=== PATIENT | female | born 1990 | race African-American/Black ===

== ENCOUNTER 2017-06-13 17:50 | Emergency (ER) | payer SELFPAY ==
[~2017-06-13] VITALS: Ht 165.1 cm; Wt 85.0 kg
[~2017-06-13 17:50] MED LIST: ZOFR4TAB3 SL
[2017-06-13 17:52] VITALS: BP 105/75; PULSE 74; RESP 20; TEMP 98.3; O2SAT 97
== END 2017-06-13 22:46 | disposition left against medical advice (07) ==
LOC: NED 17:50
DX: R11.10 Vomiting, unspecified (principal); Z53.21 Procedure and treatment not carried out due to patient leaving prior to being seen by health care provider
CPT/HCPCS: 99281

== ENCOUNTER 2018-02-11 21:46 | Emergency (ER) | payer SELFPAY ==
[2018-02-11 21:52] VITALS: BP 107/56; PULSE 70; RESP 20; TEMP 99.1; O2SAT 98
[2018-02-11 22:19] LABS: BILIRUBIN, URINE NEG (NEG); BLOOD, URINE NEG (NEG); GLUCOSE,URINE NEG (NEG); KETONE, URINE NEG (NEG); NITRITE,URINE NEG (NEG); URINE COLOR YELLOW (YELLW/STRAW); URINE LEUKOCYTE ESTERASE SMALL (NEG)
[2018-02-11 22:41] LABS: MUCUS URINE MOD /lpf (OCC); SQUAMOUS EPITHELIAL CELL URINE > 8 /hpf (0-5)
[2018-02-11 22:42] LABS: BACTERIA, URINE OCC /hpf
[2018-02-11] MEDS ORDERED: DIFL150T PO (23:23)
--- NOTE | 2018-02-11 23:24 | PD ---
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 Patient states that his symptoms started several days ago. Patient denies any headache. Patient denies any chest pain or shortness of breath. Patient denies abdominal pain. Patient denies any back pain. Patient denies any dysuria frequency. Patient denies any fever chills. Patient states that she was treated for chlamydia, STD in the past. PFSH Past Medical History Diminished Hearing: No GERD: Yes Tetanus Vaccination: Unknown Influenza Vaccination: No ?: Not LMP: APPROX 3 WEEKS AGO : 0 Para: 0 Past Surgical History Other Surgery: Yes ("HEAD A BABY", LIPOSUCTION AND FAT TRANSFER 12/08/17) Social History Alcohol Use: Yes (Occ.) Tobacco Use: No Substance Use: No Allergies-Medications (Allergen,Severity, Reaction): Coded Allergies: miconazole (Unverified Allergy, Severe, SWELLING/ RASH, 06/25/17) Reported Meds & Prescriptions Reported Meds & Active Scripts Active Zofran ODT (Ondansetron HCl) 4 Mg Tab 4 Mg SL Q4-6H PRN FOR NAUSEA/VOMITING Review of Systems General / Constitutional: No: Fever Eyes: No: Visual changes HENT: No: Headaches Cardiovascular: No: Chest Pain or Discomfort Respiratory: No: Shortness of Breath Gastrointestinal: No: Abdominal Pain Genitourinary: Positive: Discharge, No: Dysuria Musculoskeletal: No: Pain Skin: No Rash Neurologic: No: Weakness Psychiatric: No: Depression Endocrine: No: Polydipsia Hematologic/Lymphatic: No: Easy Bruising Physical Exam Narrative GENERAL: Well-nourished, well-developed patient. SKIN: Focused skin assessment warm/dry. HEAD: Normocephalic. EYES: No scleral icterus. No injection or drainage. NECK: Supple, trachea midline. No JVD or lymphadenopathy. CARDIOVASCULAR: Regular rate and rhythm without murmurs, gallops, or rubs. RESPIRATORY: Breath sounds equal bilaterally. No accessory muscle use. GASTROINTESTINAL: Abdomen soft, non-tender, nondistended. MUSCULOSKELETAL: No cyanosis, or edema. BACK: Nontender without obvious deformity. No CVA tenderness. 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 No cervical motion tenderness. Uterus is nonenlarged and nontender on palpation. No adnexal mass or tenderness. Data Data Last Documented VS Vital Signs Date Time Temp Pulse Resp B/P (MAP) Pulse Ox O2 Delivery O2 Flow Rate FiO2 02/11/18 21:52 99.1 70 20 107/56 (73) 98 Orders Orders Urinalysis - C+S If Indicated (02/11/18 22:03) Ed Urine Pregnancytest Poc (02/11/18 22:03) Gc And Chlamydia Pcr (02/11/18 23:18) Wet Prep Profile (02/11/18 23:18) Azithromycin Powd Pack (Zithromax Powd P (02/11/18 23:30) Rocephin 250mg Vial Im X 1 (02/11/18 23:30) Labs Laboratory Tests Test 02/11/18 22:05 Urine Collection Type CLEAN CATCH Urine Color YELLOW Urine Turbidity SL CLOUDY Urine pH 7.0 Urine Specific [place] 1.025 Urine Protein TRACE mg/dL Urine Glucose (UA) NEG mg/dL Urine Ketones NEG mg/dL Urine Occult Blood NEG Urine Nitrite NEG Urine Bilirubin NEG Urine Urobilinogen 0.2 MG/DL Urine Leukocyte Esterase SMALL Urine WBC 3-5 /hpf Urine Squamous Epithelial Cells > 8 /hpf Urine Bacteria OCC /hpf Urine Mucus MOD /lpf Urine Yeast (Budding) OCC Microscopic Urinalysis Comment CULT NOT INDICATED MDM Medical Decision Making Medical Screen Exam Complete: Yes Emergency Medical Condition: Yes Differential Diagnosis Differential diagnosis including bacterial vaginosis, Elicia vaginitis, cervicitis, PID. Narrative Course 27-year-old female with vaginal discharge and itching. Diagnosis Primary Impression: Cervicitis Additional Impression: Elicia vaginitis Patient Instructions: General Instructions Med/Other Pt SpecificInfo: Prescription(s) given Scripts Fluconazole (Diflucan) 150 Mg Tab 150 MG PO ONCE for Infection, #1 TAB 0 Refills Prov: Landon Carter MD 02/11/18 Disposition: 01 DISCHARGE HOME Condition: Stable Landon Carter MD Feb 11, 2018 23:24
[2018-02-11] MEDS ORDERED: AZITHROMYCIN PWD FOR SUSP 1 GM PACKET PO ONE (23:30)
[2018-02-11] MEDS ORDERED: LIDOCAINE HCL 1% 30 ML VIAL INFIL ONE (23:30)
[2018-02-11] MEDS ORDERED: cefTRIAXone 250 MG VIAL IM ONE (23:30)
[2018-02-12 00:39] VITALS: BP 111/58
== END 2018-02-12 00:42 | disposition home or self-care (01) ==
LOC: PHED 21:46
DX: N72 Inflammatory disease of cervix uteri (principal); B37.3 Candidiasis of vulva and vagina; K21.9 Gastro-esophageal reflux disease without esophagitis; Z88.8 Allergy status to other drugs, medicaments and biological substances
CPT/HCPCS: 81001; 84703; 87210; 87491; 87591; 96372; 99283; J0696